=== PATIENT | male | born 1995 | race Caucasian/White ===

== ENCOUNTER → 2016-08-06 | Outpatient (CLI) | payer OTHER ==
[~2016-08-06] MED LIST: ALBU1AER9 INH; MONT1TAB3 PO
--- NOTE | 2016-08-06 14:10 | DIAGNOSTIC IMAGING REPORT ---
RIGHT HIP INJECTION UNDER FLUOROSCOPIC GUIDANCE CLINICAL HISTORY: Right hip pain. Injection for MR arthrogram. PROCEDURE: The risks, benefits, and alternatives to the procedure were discussed with the patient. Written informed consent was obtained. The patient was placed supine on the fluoroscopy table, and a right hip injection was performed under fluoroscopic guidance. The area was prepped and draped in the usual sterile fashion. The skin and soft tissues anesthetized with local 1% lidocaine. The right hip joint was accessed utilizing a 22-gauge needle, and approximately 5 cc of a mixture of gadolinium contrast, Optiray 300, and saline was injected into the joint space under fluoroscopic guidance. There was normal distention of the capsule. The procedure was well tolerated and without immediate complication. The patient was then transferred to MRI for MR arthrography. FLUOROSCOPY TIME: 24 seconds. IMPRESSION: Injection of the right hip under fluoroscopic guidance. Electronically signed by: Eusebio Zhou M.D. 08/06/2016 2:08 PM Dictated Date/Time: 08/06/2016 2:07 PM
--- NOTE | 2016-08-06 15:05 | DIAGNOSTIC IMAGING REPORT ---
MR ARTHROGRAM OF THE RIGHT HIP CLINICAL HISTORY: Right hip pain. COMPARISON STUDY: No priors. TECHNIQUE: Following the intra-articular administration of gadolinium contrast, MR arthrogram of the right hip is performed using various T1 and T2-weighted sequences in the axial, sagittal, an coronal planes. FINDINGS: There is no MRI evidence of fracture or osteonecrosis involving the right proximal femur. The visualized right bony pelvis is intact. The joint space is well distended with intra-articular contrast. There is a large tear of the anterior/superior labrum, best seen on coronal images #5-7. There is no greater trochanteric or iliopsoas bursitis. The articular cartilage of the femoral head and acetabulum appear well-maintained. The surrounding musculature is normal in bulk and signal intensity. The origin of the right hamstrings tendon is intact. The partially visualized pelvic viscera is grossly unremarkable. IMPRESSION: 1. No osseous abnormality is seen in the right hip. 2. There is a large anterior/superior labral tear identified. Electronically signed by: Eusebio Zhou M.D. 08/06/2016 3:04 PM Dictated Date/Time: 08/06/2016 2:57 PM
== END | disposition home or self-care (01) ==
LOC: C.MRIBC 12:49
PROVIDERS: ATTEND Physical Medicine & Rehabilitation
DX: S73.191A Other sprain of right hip, initial encounter (principal); X58.XXXA Exposure to other specified factors, initial encounter

== ENCOUNTER → 2016-08-11 | Outpatient (CLI) | payer OTHER | END | disposition home or self-care (01) | LOC: C.RDSM 15:30 | PROVIDERS: ATTEND Physical Medicine & Rehabilitation Sports Medicine | DX: M25.551 Pain in right hip (principal) ==